=== PATIENT | male | born 1980 | race Caucasian/White ===

== ENCOUNTER 2024-04-14 00:40 | Inpatient (IN) | payer MEDICARE, MEDICAID ==
[~2024-04-14] VITALS: Ht 177.8 cm; Wt 91.3 kg
[2024-04-14] VITALS (17 sets, daily range): BP systolic 101–120; BP diastolic 63–75; PULSE 75–107; RESP 14–22; TEMP 97.7–99.1; O2SAT 88–98
[2024-04-14] MEDS ORDERED: ondansetron/PF 4mg/2ml inj IV PRN (03:05)
[2024-04-14] MEDS ORDERED: potassium Cl 40MEQ/1/2NS 520ml 520 ML IV PRN (03:05)
[2024-04-14] MEDS ORDERED: glucagon, human recombinant 1mg kit SUBCUT PRN (03:05)
[2024-04-14] MEDS ORDERED: acetaminophen 325mg tablet PO PRN (03:05)
[2024-04-14] MEDS ORDERED: magnesium Cl slow-release 64mg tablet PO PRN (03:05)
[2024-04-14] MEDS ORDERED: dextrose 50%-water 50ml dispensing syringe IV PRN ×2 (03:05)
[2024-04-14] MEDS ORDERED: potassium Cl 20 mEq SR tablet PO PRN (03:05)
[2024-04-14] MEDS ORDERED: DEXTROSE 15 GM of carb/4 tabs (each vial/BOTTLE has 4 tablets) PO PRN ×2 (03:05)
[2024-04-14] MEDS: piperacillin/tazo 3.375gm/50ml 50 ML IV SCH (03:05)
[2024-04-14] MEDS: normal saline 1000ml 1,000 ML IV SCH (03:05)
[2024-04-14] MEDS ORDERED: magnesium sulf-water 4G/100mL 100 ML IV PRN (03:05)
[2024-04-14] MEDS ORDERED: magnesium sulf-water 2g/50mL 50 ML IV PRN (03:05)
[2024-04-14] MEDS ORDERED: magnesium hydroxide 30ml (MOM) UD suspension PO PRN (03:05)
[2024-04-14] MEDS ORDERED: ipratropium/albuterol 3ml nebule NEB PRN (03:10)
[2024-04-14] MEDS: vancomycin/NS 1 GM ADD-VANTAGE 250 ML IV SCH (05:46)
[2024-04-14] MEDS: INSULIN LISPRO 100 UNIT/ML INSULN.PEN MULTI-DOSE SQ SCH ×2 (07:00→17:56)
[2024-04-14] MEDS: K and/or MAG REPLACEMENT MC SCH (08:00)
[2024-04-14 08:22] LABS: APTT 28 SECONDS (22-32); INR 1.3 INR; PROTHROMBIN TIME 13.5 SECONDS (9.0-12.0)
[2024-04-14] MEDS: ipratropium/albuterol 3ml nebule NEB SCH (08:23)
[2024-04-14 08:29] LABS: BASOPHILS % (AUTO) 0.2 % (0-1); EOSINOPHILS # (AUTO) 0.2 X10'3 (0-0.9); EOSINOPHILS % (AUTO) 2.6 % (0-6); HEMOGLOBIN 11.3 g/dl (14.0-17.9); LYMPHOCYTES # (AUTO) 2.5 X10'3 (1.1-4.8); LYMPHOCYTES % (AUTO) 34.6 % (21-51); MEAN CORPUSCULAR HGB CONC 33.2 g/dL (33.0-36.5); MEAN CORPUSCULAR VOLUME 87.5 FL (78-98); MEAN PLATELET VOLUME 7.4 FL (7.4-10.4); MONOCYTES # (AUTO) 0.9 X10'3 (0-0.9); MONOCYTES % (AUTO) 12.8 % (2-12); NEUTROPHILS # (AUTO) 3.6 X10'3 (1.8-7.7); NEUTROPHILS % (AUTO) 49.8 % (42-75); PLATELET COUNT 314 X10'3 (140-440); RED BLOOD COUNT 3.89 X10'6 (4.70-6.10); RED CELL DISTRIBUTION WIDTH 14.4 % (11.5-14.5); WHITE BLOOD COUNT 7.2 X10'3 (4.5-11.0)
[2024-04-14 08:39] LABS: ALANINE AMINOTRANSFERASE 20 U/L (12-78); ALBUMIN 1.6 G/DL (3.4-5.0); ALBUMIN/GLOBULIN RATIO 0.3 (1.1-1.5); ALKALINE PHOSPHATASE 70 IU/L (46-116); ANION GAP 6 (8-16); ASPARTATE AMINO TRANSFERASE 19 U/L (10-37); BILIRUBIN,TOTAL 0.4 MG/DL (0.1-1.0); BLOOD UREA NITROGEN 4 MG/DL (7-18); BUN/CREATININE RATIO 6.9 (10.0-20.0); CALCIUM 7.8 MG/DL (8.5-10.1); CHLORIDE 101 MMOL/L (99-107); CREATININE 0.58 MG/DL (0.60-1.10); GLUCOSE 144 MG/DL (70-104); MAGNESIUM 1.4 MG/DL (1.5-2.4); SODIUM 135 MMOL/L (135-145); TOTAL CARBON DIOXIDE 28.2 MMOL/L (24-32); TOTAL PROTEIN 6.3 G/DL (6.4-8.2); eCRCL 171 ML/MIN; eGFR > 90 ML/MIN
[2024-04-14 08:45] LABS: ETHANOL < 10 MG/DL (<10)
[2024-04-14] MEDS: heparin, porcine 5000 units/ml vial SQ SCH (09:07)
[2024-04-14] MEDS: docusate sod 100mg capsule PO SCH (09:08)
[2024-04-14] MEDS: potassium Cl 20 mEq SR tablet PO PRN (09:13)
[2024-04-14] MEDS: magnesium sulf-water 2g/50mL 50 ML IV ONE (12:31)
[2024-04-14] MEDS: morphine 2 MG/ML inj. syringe IV PRN (12:51)
[2024-04-14 18:24] LABS: SODIUM,URINE RANDOM 18 MEQ/L; URINE AMPHETAMINE SCREEN NEGATIVE (Neg); URINE BARBITUATE SCREEN NEGATIVE (Neg); URINE BENZODIAZEPINES SCREEN NEGATIVE (Neg); URINE CANNABINOID SCREEN NEGATIVE (Neg); URINE COCAINE SCREEN NEGATIVE (Neg); URINE METHADONE SCREEN NEGATIVE (Neg); URINE OPIATE SCREEN POSITIVE (Neg); URINE PHENCYCLIDINE SCREEN NEGATIVE (Neg)
[2024-04-14 18:41] LABS: OSMOLALITY UA 373 MOSM/K (50-1400)
[2024-04-14] MEDS ORDERED: INSULIN LISPRO 100 UNIT/ML INSULN.PEN MULTI-DOSE SQ SCH (21:00)
[2024-04-14] MEDS: insulin glargine (Lantus) pen - multi-dose SQ SCH (21:55)
[2024-04-15] VITALS (8 sets, daily range): BP systolic 101–122; BP diastolic 54–74; PULSE 64–109; RESP 18–22; TEMP 97.2–98.7; O2SAT 89–98
[2024-04-15] MEDS: VANCOMYCIN LEVEL IV ONE (04:30)
[2024-04-15 06:51] LABS: ALANINE AMINOTRANSFERASE 21 U/L (12-78); ALBUMIN 1.6 G/DL (3.4-5.0); ALBUMIN/GLOBULIN RATIO 0.3 (1.1-1.5); ALKALINE PHOSPHATASE 68 IU/L (46-116); ANION GAP 6 (8-16); ASPARTATE AMINO TRANSFERASE 15 U/L (10-37); BILIRUBIN,TOTAL 0.3 MG/DL (0.1-1.0); BLOOD UREA NITROGEN 4 MG/DL (7-18); CALCIUM 7.8 MG/DL (8.5-10.1); CHLORIDE 103 MMOL/L (99-107); CREATININE 0.67 MG/DL (0.60-1.10); GLUCOSE 211 MG/DL (70-104); POTASSIUM 3.7 MMOL/L (3.5-5.1); SODIUM 134 MMOL/L (135-145); TOTAL CARBON DIOXIDE 24.6 MMOL/L (24-32); TOTAL PROTEIN 6.4 G/DL (6.4-8.2); eCRCL 148 ML/MIN; eGFR > 90 ML/MIN
[2024-04-15 06:53] LABS: BASOPHILS % (AUTO) 0.5 % (0-1); EOSINOPHILS % (AUTO) 0.7 % (0-6); HEMATOCRIT 36.2 % (42.0-52.0); HEMOGLOBIN 11.8 g/dl (14.0-17.9); LYMPHOCYTES # (AUTO) 2.1 X10'3 (1.1-4.8); MEAN CORPUSCULAR HEMOGLOBIN 28.7 PG (27.0-31.0); MEAN CORPUSCULAR HGB CONC 32.5 g/dL (33.0-36.5); MEAN CORPUSCULAR VOLUME 88.2 FL (78-98); MEAN PLATELET VOLUME 7.5 FL (7.4-10.4); MONOCYTES # (AUTO) 0.9 X10'3 (0-0.9); MONOCYTES % (AUTO) 14.8 % (2-12); PLATELET COUNT 332 X10'3 (140-440); RED BLOOD COUNT 4.11 X10'6 (4.70-6.10); RED CELL DISTRIBUTION WIDTH 14.5 % (11.5-14.5)
[2024-04-15 06:55] LABS: CHOL/HDL RATIO 2.5 (0.00-4.99); CHOLESTEROL 97 MG/DL (0-200); HDL CHOLESTEROL 39 MG/DL (35-60); LDL CHOLESTEROL 45 MG/DL (50-100); MAGNESIUM 1.5 MG/DL (1.5-2.4); TRIGLYCERIDES 59 MG/DL (20-135); VANCOMYCIN,TROUGH 8.2 ug/mL (10.0-20.0)
[2024-04-15 07:12] LABS: OSMOLALITY 280 MOSM/K (280-300)
[2024-04-15] MEDS: HYDROcodone/acetaminophen 10/325mg tab PO PRN (09:21)
[2024-04-15] MEDS: nicotine 14mg patch - 24hr TD SCH (11:48)
[2024-04-15] MEDS: VANCOmycin 1250MG/NS 250ml Bag 250 ML IV SCH (13:48)
[2024-04-15] MEDS: insulin glargine (Lantus) pen - multi-dose SQ SCH (20:35)
[2024-04-16] VITALS (7 sets, daily range): BP systolic 110–122; BP diastolic 67–72; PULSE 87–108; RESP 18–20; TEMP 97.7–98.1; O2SAT 89–97
[2024-04-16 07:13] LABS: BASOPHILS % (AUTO) 0.6 % (0-1); EOSINOPHILS # (AUTO) 0.1 X10'3 (0-0.9); EOSINOPHILS % (AUTO) 1.7 % (0-6); HEMATOCRIT 36.6 % (42.0-52.0); LYMPHOCYTES # (AUTO) 2.4 X10'3 (1.1-4.8); LYMPHOCYTES % (AUTO) 33.2 % (21-51); MEAN CORPUSCULAR HEMOGLOBIN 28.9 PG (27.0-31.0); MEAN CORPUSCULAR HGB CONC 32.8 g/dL (33.0-36.5); MEAN CORPUSCULAR VOLUME 88.1 FL (78-98); MEAN PLATELET VOLUME 7.3 FL (7.4-10.4); MONOCYTES # (AUTO) 1.3 X10'3 (0-0.9); MONOCYTES % (AUTO) 18.1 % (2-12); NEUTROPHILS # (AUTO) 3.4 X10'3 (1.8-7.7); NEUTROPHILS % (AUTO) 46.4 % (42-75); PLATELET COUNT 364 X10'3 (140-440); RED BLOOD COUNT 4.15 X10'6 (4.70-6.10); RED CELL DISTRIBUTION WIDTH 14.6 % (11.5-14.5); WHITE BLOOD COUNT 7.2 X10'3 (4.5-11.0)
[2024-04-16 07:33] LABS: ALANINE AMINOTRANSFERASE 20 U/L (12-78); ALBUMIN 1.6 G/DL (3.4-5.0); ALBUMIN/GLOBULIN RATIO 0.3 (1.1-1.5); ALKALINE PHOSPHATASE 82 IU/L (46-116); ANION GAP 6 (8-16); ASPARTATE AMINO TRANSFERASE 18 U/L (10-37); BILIRUBIN,TOTAL 0.4 MG/DL (0.1-1.0); BLOOD UREA NITROGEN 6 MG/DL (7-18); BUN/CREATININE RATIO 6.7 (10.0-20.0); CALCIUM 8.5 MG/DL (8.5-10.1); CHLORIDE 104 MMOL/L (99-107); CREATININE 0.89 MG/DL (0.60-1.10); GLUCOSE 205 MG/DL (70-104); MAGNESIUM 1.5 MG/DL (1.5-2.4); SODIUM 136 MMOL/L (135-145); TOTAL CARBON DIOXIDE 26.5 MMOL/L (24-32); TOTAL PROTEIN 6.8 G/DL (6.4-8.2); eCRCL 112 ML/MIN; eGFR > 90 ML/MIN
[2024-04-16 08:37] LABS: PLATELET ESTIMATE NORMAL; TOTAL CELLS COUNTED 100
[2024-04-16] MEDS: INSULIN LISPRO 100 UNIT/ML INSULN.PEN MULTI-DOSE SQ SCH (09:53)
[2024-04-16] MEDS ORDERED: INSULIN LISPRO 100 UNIT/ML INSULN.PEN MULTI-DOSE SQ SCH (12:00)
[2024-04-16] MEDS ORDERED: VANCOMYCIN LEVEL IV ONE (12:30)
[2024-04-16] MEDS: VANCOMYCIN LEVEL IV ONE (21:07)
[2024-04-17] VITALS (15 sets, daily range): BP systolic 105–128; BP diastolic 67–86; PULSE 90–105; RESP 14–20; TEMP 97.6–98.3; O2SAT 90–97
[2024-04-17] MEDS: HYDROcodone/acetaminophen 5mg/325mg tablet PO PRN (08:07)
[2024-04-17 10:11] LABS: BASOPHILS % (AUTO) 0.6 % (0-1); EOSINOPHILS # (AUTO) 0.1 X10'3 (0-0.9); EOSINOPHILS % (AUTO) 0.9 % (0-6); HEMATOCRIT 38.3 % (42.0-52.0); HEMOGLOBIN 12.6 g/dl (14.0-17.9); LYMPHOCYTES # (AUTO) 2.2 X10'3 (1.1-4.8); MEAN CORPUSCULAR HEMOGLOBIN 28.8 PG (27.0-31.0); MEAN CORPUSCULAR HGB CONC 32.8 g/dL (33.0-36.5); MEAN CORPUSCULAR VOLUME 87.8 FL (78-98); MEAN PLATELET VOLUME 7.6 FL (7.4-10.4); MONOCYTES # (AUTO) 1.5 X10'3 (0-0.9); MONOCYTES % (AUTO) 18.4 % (2-12); NEUTROPHILS # (AUTO) 4.3 X10'3 (1.8-7.7); NEUTROPHILS % (AUTO) 53.1 % (42-75); PLATELET COUNT 366 X10'3 (140-440); RED BLOOD COUNT 4.36 X10'6 (4.70-6.10); RED CELL DISTRIBUTION WIDTH 15.2 % (11.5-14.5); WHITE BLOOD COUNT 8.1 X10'3 (4.5-11.0)
[2024-04-17 10:22] LABS: ALANINE AMINOTRANSFERASE 19 U/L (12-78); ALBUMIN 1.6 G/DL (3.4-5.0); ALBUMIN/GLOBULIN RATIO 0.3 (1.1-1.5); ALKALINE PHOSPHATASE 77 IU/L (46-116); ANION GAP 4 (8-16); ASPARTATE AMINO TRANSFERASE 21 U/L (10-37); BILIRUBIN,TOTAL 0.4 MG/DL (0.1-1.0); BLOOD UREA NITROGEN 5 MG/DL (7-18); BUN/CREATININE RATIO 4.3 (10.0-20.0); CALCIUM 8.5 MG/DL (8.5-10.1); CHLORIDE 105 MMOL/L (99-107); CREATININE 1.16 MG/DL (0.60-1.10); GLUCOSE 251 MG/DL (70-104); MAGNESIUM 1.4 MG/DL (1.5-2.4); SODIUM 137 MMOL/L (135-145); TOTAL CARBON DIOXIDE 28.4 MMOL/L (24-32); TOTAL PROTEIN 6.6 G/DL (6.4-8.2); eCRCL 86 ML/MIN; eGFR 69 ML/MIN
[2024-04-17 11:45] LABS: HIV ANTIBODY 1&2 RAPID NON-REACTIVE (Neg)
[2024-04-18] VITALS (8 sets, daily range): BP systolic 120–134; BP diastolic 70–82; PULSE 80–98; RESP 16–20; TEMP 97.6–98.3; O2SAT 91–98
[2024-04-19] VITALS (11 sets, daily range): BP systolic 113–115; BP diastolic 67–83; PULSE 72–102; RESP 16–20; TEMP 97.3–97.8; O2SAT 88–98
[2024-04-19] MEDS: FLUoxetine 10mg capsule PO SCH (14:01)
[2024-04-20] VITALS (8 sets, daily range): BP systolic 116–124; BP diastolic 70–75; PULSE 89–98; RESP 14–20; TEMP 97.7–98; O2SAT 92–95
[2024-04-21] VITALS (11 sets, daily range): BP systolic 98–129; BP diastolic 64–91; PULSE 67–99; RESP 14–18; TEMP 97.5–98; O2SAT 90–96
[2024-04-21] MEDS: FLUoxetine 10mg capsule PO SCH (14:38)
[2024-04-21] MEDS: insulin glargine (Lantus) pen - multi-dose SQ SCH (21:00)
[2024-04-22] VITALS (13 sets, daily range): BP systolic 116–134; BP diastolic 74–79; PULSE 79–92; RESP 14–20; TEMP 97.5–98.3; O2SAT 91–96
[2024-04-22] MEDS ORDERED: metFORMIN 500mg tablet PO SCH (08:00)
[2024-04-22] MEDS ORDERED: magnesium sulf-water 2g/50mL 50 ML IV PRN (21:30)
[2024-04-22] MEDS ORDERED: magnesium sulf-water 4G/100mL 100 ML IV PRN (21:30)
[2024-04-22] MEDS ORDERED: potassium Cl 40MEQ/1/2NS 520ml 520 ML IV PRN (21:30)
[2024-04-22] MEDS ORDERED: potassium Cl 20 mEq SR tablet PO PRN ×2 (21:30)
[2024-04-22] MEDS: magnesium Cl slow-release 64mg tablet PO PRN (21:54)
[2024-04-22] MEDS: morphine 2 MG/ML inj. syringe IV PRN (21:55)
[2024-04-23] VITALS (10 sets, daily range): BP systolic 110–125; BP diastolic 71–76; PULSE 53–85; RESP 13–17; TEMP 97.5–97.8; O2SAT 92–95
[2024-04-23] MEDS: K and/or MAG REPLACEMENT MC SCH (07:36)
[2024-04-23] MEDS: oxyCODONE/APAP 10/325mg tablet PO PRN (16:56)
[2024-04-23] MEDS: oxyCODONE/APAP 5-325mg tablet PO PRN (21:12)
[2024-04-24] VITALS (7 sets, daily range): BP systolic 85–120; BP diastolic 52–78; PULSE 76–90; RESP 12–20; TEMP 97.3–97.5; O2SAT 93–95
[2024-04-25] VITALS (12 sets, daily range): BP systolic 97–119; BP diastolic 58–79; PULSE 74–85; RESP 15–20; TEMP 97.1–98; O2SAT 92–97
[2024-04-25] MEDS: mag hydrox/Alum hydrox/simeth 30ml oral suspension PO PRN (08:37)
[2024-04-25] MEDS: amox tr/potassium clavulanate 875/125mg TAB PO SCH (18:24)
[2024-04-26] VITALS (10 sets, daily range): BP systolic 98–126; BP diastolic 69–78; PULSE 69–84; RESP 13–19; TEMP 97.3–97.8; O2SAT 93–98
[2024-04-27] VITALS (16 sets, daily range): BP systolic 110–118; BP diastolic 65–74; PULSE 73–94; RESP 12–18; TEMP 97.5–98; O2SAT 92–97
[2024-04-28] VITALS (14 sets, daily range): BP systolic 109–124; BP diastolic 68–86; PULSE 64–92; RESP 16–18; TEMP 97.2–97.9; O2SAT 92–98
[2024-04-29] VITALS (10 sets, daily range): BP systolic 123–151; BP diastolic 66–79; PULSE 61–94; RESP 16–20; TEMP 96.9–98.2; O2SAT 92–97
== END 2024-04-29 16:55 | DRG 177 ==
LOC: ER 00:41 → EDBD 00:41 → ED HOLD 01:31 → ORTHO 4S 03:38 → SUR 3N 04-21 18:56 → PCU 3S 04-26 17:44 → UNDODISIN 04-29 16:53
PROVIDERS: ADMIT Internal Medicine Sleep Medicine; ATTEND Family Medicine
PROC: 0W9930Z Drainage of Right Pleural Cavity with Drainage Device, Percutaneous Approach (ICD-10-PCS; principal; 2024-04-17)
DX: J86.9 Pyothorax without fistula (principal); J96.01 Acute respiratory failure with hypoxia; E87.1 Hypo-osmolality and hyponatremia; E87.3 Alkalosis; E87.20 Acidosis, unspecified; J94.2 Hemothorax; F20.9 Schizophrenia, unspecified; K80.20 Calculus of gallbladder without cholecystitis without obstruction; E87.6 Hypokalemia; E83.42 Hypomagnesemia; E11.9 Type 2 diabetes mellitus without complications; I27.81 Cor pulmonale (chronic); F32.A Depression, unspecified; J44.9 Chronic obstructive pulmonary disease, unspecified
CPT/HCPCS: 32557; 36415; 71045; 71250; 77012; 80053; 80061; 80202; 80305; 80320; 82948; 83036; 83605; 83735; 83930; 83935; 84145; 84300; 85007; 85025; 85610; 85730; 86703; 87040; 87070; 87081; 93306; 94640; 94760; 97116; 97161; 97530; 99285; A4421; A4615; A6223; A6258; A6449; C1729; C1769; G0378; J1644; J1815; J2270; J2543; J3370; J7030; J7040

== ENCOUNTER 2024-05-22 09:37 | Outpatient (CLI) | payer MEDICARE, MEDICAID ==
[2024-05-22] MEDS ORDERED: iohexol 300mg/ml 100ml inj. ONE (09:52)
== END 2024-05-22 23:59 | disposition home or self-care (01) ==
LOC: RAD 09:37
PROVIDERS: ATTEND Internal Medicine
DX: J96.00 Acute respiratory failure, unspecified whether with hypoxia or hypercapnia (principal)
CPT/HCPCS: 71270; Q9967